=== PATIENT | male | born 1965 | race Caucasian/White ===

== ENCOUNTER → 2018-04-08 | Outpatient (CLI) | payer OTHER | END | disposition home or self-care (01) | LOC: LAB SHORT 14:37 → LAB EV 14:37 | DX: N39.0 Urinary tract infection, site not specified (principal) | CPT/HCPCS: 87077; 87086; 87186 ==

== ENCOUNTER 2019-02-04 12:27 | Day surgery (SDC) | payer OTHER ==
[~2019-02-04] VITALS: Ht 177.8 cm; Wt 88.3 kg
[~2019-02-04 12:27] MED LIST: Ativan1 MG; MELATONIN5 M1; NAPR220; VENL75ER; [UNRECOGNIZED DRUG - OTHER]
== END 2019-02-04 14:25 | disposition home or self-care (01) ==
LOC: ORSCSDS 12:27
PROVIDERS: Student in an Organized Health Care Education/Training Program
PROC: 0DBP8ZX Excision of Rectum, Via Natural or Artificial Opening Endoscopic, Diagnostic (ICD-10-PCS; principal; 2019-02-04 14:15)
DX: Z12.11 Encounter for screening for malignant neoplasm of colon (principal); K62.1 Rectal polyp; K57.30 Diverticulosis of large intestine without perforation or abscess without bleeding; K64.8 Other hemorrhoids; I10 Essential (primary) hypertension; G47.33 Obstructive sleep apnea (adult) (pediatric); K21.9 Gastro-esophageal reflux disease without esophagitis; J45.909 Unspecified asthma, uncomplicated; R73.03 Prediabetes; Z79.899 Other long term (current) drug therapy
CPT/HCPCS: 88305; J2704; J7120